=== PATIENT | female | born 1975 | race Caucasian/White ===

== ENCOUNTER 2020-06-11 15:39 | Outpatient (REF) | payer OTHER, SELFPAY ==
[2020-06-11 21:35] LABS: Anion Gap 9.1 mmol/L (3-11); BUN 9 mg/dL (7-18); CO2 29.9 mmol/L (21.0-32.0); CREATININE 0.77 mg/dL (0.55-1.02); Calcium 9.2 mg/dL (8.5-10.1); Calculated LDL 156 mg/dL (<100); Chloride 106 mmol/L (98-107); Cholesterol 246 mg/dL (<200); Glucose 88 mg/dL (74-106); HDL Cholesterol 67 mg/dL (40-60); Potassium 3.8 mmol/L (3.5-5.1); Sodium 145 mmol/L (136-145); TSH (W/Ref FT4) 3.37 uIU/mL (0.36-3.74); Triglyceride 116 mg/dL (<150)
== END 2020-06-11 15:59 ==
LOC: NCHCN 15:39
PROVIDERS: PCP Family Medicine; Visit Provider Family Medicine
DX: E03.9 Hypothyroidism, unspecified (principal); E78.5 Hyperlipidemia, unspecified; E66.3 Overweight
CPT/HCPCS: 80048; 80061; 84443

== ENCOUNTER 2020-08-23 12:21 | Outpatient (REF) | payer SELFPAY ==
[2020-08-26 13:04] LABS: SARS-CoV-2 RNA Not Detected (NotDetected); SARS-CoV-2 RNA Source Nasal/Nares
== END 2020-08-23 12:41 ==
LOC: NCHCN 12:21
PROVIDERS: PCP Family Medicine; Visit Provider Nurse Practitioner Family
DX: Z20.828 Contact with and (suspected) exposure to other viral communicable diseases (principal)
CPT/HCPCS: U0003

== ENCOUNTER 2020-12-05 19:45 | Outpatient (REF) | payer OTHER, SELFPAY | END 2020-12-05 19:46 | disposition home or self-care (01) | LOC: NCHCO 19:45 | PROVIDERS: PCP Family Medicine; Visit Provider Registered Nurse | DX: N39.0 Urinary tract infection, site not specified (principal) | CPT/HCPCS: 87086 ==

== ENCOUNTER 2021-07-21 16:33 | Outpatient (REF) | payer OTHER, SELFPAY ==
[2021-07-22 20:02] LABS: COVID-19 RT-PCR UVMMC Result Negative (Negative)
== END 2021-07-21 16:34 | disposition home or self-care (01) ==
LOC: NCHCN 16:33
PROVIDERS: PCP Family Medicine; Visit Provider Nurse Practitioner Family
DX: Z20.822 Contact with and (suspected) exposure to COVID-19 (principal)
CPT/HCPCS: U0003

== ENCOUNTER 2021-12-17 16:34 | Outpatient (REF) | payer OTHER, SELFPAY ==
[2021-12-17 14:29] LABS: Calculated LDL 149 mg/dL (<100); Cholesterol 241 mg/dL (<200); HDL Cholesterol 57 mg/dL (40-60); Triglyceride 175 mg/dL (<150)
== END 2021-12-17 16:35 | disposition home or self-care (01) ==
LOC: NCHCN 16:34
PROVIDERS: PCP Family Medicine; Visit Provider Family Medicine
DX: Z00.00 Encounter for general adult medical examination without abnormal findings (principal); Z13.1 Encounter for screening for diabetes mellitus; Z13.220 Encounter for screening for lipoid disorders
CPT/HCPCS: 80061; 83036

== ENCOUNTER 2022-04-30 12:03 | Outpatient (REF) | payer OTHER, SELFPAY ==
[2022-04-30 21:29] LABS: TSH (W/Ref FT4) 6.79 uIU/mL (0.36-3.74)
== END 2022-04-30 12:04 | disposition home or self-care (01) ==
LOC: NCHCN 12:03
PROVIDERS: PCP Family Medicine; Visit Provider Nurse Practitioner Family
DX: E03.9 Hypothyroidism, unspecified (principal); E66.9 Obesity, unspecified
CPT/HCPCS: 84439; 84443

== ENCOUNTER → 2022-06-05 00:05 | Outpatient (CLI) | payer OTHER, SELFPAY ==
--- NOTE | 2022-06-05 | DI.MAMMO_ITS ---
Exam(s) MAMMO SCREENING EXAM: MAMMO SCREENING CLINICAL HISTORY: SCREENING, Z12.39 TECHNIQUE: Bilateral full field digital CC and MLO mammographic images were obtained with 3D tomosyn thesis and utilizing computer aided detection (CAD). COMPARISON: None. FINDINGS: Masses/Architectural Distortion: None seen. Microcalcifications: No suspicious pleomorphic-type are seen. Skin Thickening/Nipple Retraction: None. IMPRESSION: 1. No significant interval change with no specific features of malignancy noted. 2. Unless there is more urgent need, screening mammography is recommended, as per [employer] guidelines. BI-RADS Category 1 - Negative Breast Density - Category C - Heterogeneously dense Breast density category C or D implies that the patient has dense breast tissue. Dense breast tissue is very common and is not abnormal but dense breast tissue can make it harder to find cancer on a ma mmogram. Also, dense breast tissue may increase their breast cancer risk. This information about the result of the mammogram report was provided to the patient to raise their awareness. Use this report when you speak with the patient about their risks for breast cancer, which includes their family hist ory. At that time, you may recommend for more screening tests (Ultrasound or MRI) as they might be us eful based on their risk. A negative radiographic report should not delay biopsy if a dominant or clinically suspicious mass is present. Up to ten percent of cancers are not identified on mammography. A negative report may reinforce clinical impression. Adenosis and dense breasts may obscure an underlying neoplasm. False positive reports average 6 to 10%. Patient will receive a letter notifying them of these results.
== END ==
PROVIDERS: PCP Family Medicine; Visit Provider Family Medicine
DX: Z12.31 Encounter for screening mammogram for malignant neoplasm of breast (principal); R92.8 Other abnormal and inconclusive findings on diagnostic imaging of breast
CPT/HCPCS: 77063; 77067

== ENCOUNTER 2022-06-08 18:33 | Outpatient (REF) | payer OTHER, SELFPAY ==
[2022-06-08 17:59] LABS: TSH 0.46 uIU/mL (0.36-3.74)
== END 2022-06-08 18:34 | disposition home or self-care (01) ==
LOC: NCHCN 18:33
PROVIDERS: PCP Family Medicine; Visit Provider Family Medicine
DX: E03.9 Hypothyroidism, unspecified (principal)
CPT/HCPCS: 84443

== ENCOUNTER 2023-04-29 17:34 | Outpatient (REF) | payer SELFPAY ==
[2023-04-29 14:32] LABS: Abs Immature Grans 0.02 10^3/uL (0.0-0.06); Absolute Basophil Count 0.04 10^3/uL (0.0-0.2); Absolute Eosinophil Count 0.06 10^3/uL (0.0-0.7); Absolute Lymphocyte Count 1.61 10^3/uL (1.2-3.4); Absolute Monocyte Count 0.49 10^3/uL (0.1-0.8); Absolute Neutrophil Count 5.14 10^3/uL (1.2-6.7); Anion Gap 8.4 mmol/L (3-11); BUN 9 mg/dL (7-18); Basophils % 0.5; CO2 27.6 mmol/L (21.0-32.0); CREATININE 0.8 mg/dL (0.55-1.02); Chloride 104 mmol/L (98-107); Eosinophils % 0.8; Estimated GFR 91.97 (mL/min/1.73m2); Glucose 81 mg/dL (74-106); HCT 44.3 % (36.0-46.0); HGB 15.3 g/dL (11.2-15.7); Immature Grans % 0.3; Lymphocytes % 21.9; MCH 31.9 pg (27.0-33.0); MCHC 34.5 % (32.0-36.0); MCV 93 fL (80-95); MPV 10.8 fL (8.0-11.0); Monocytes % 6.7; Neutrophils % 69.8; Platelet Count 220 10^3/uL (130-400); Potassium 3.9 mmol/L (3.5-5.1); RBC 4.79 10^6/uL (3.93-5.22); RDW 11.9 % (11.7-14.6); RDW-SD 40.7 fL; Sodium 140 mmol/L (136-145); WBC 7.36 10^3/uL (4.4-10.8)
== END 2023-04-29 17:35 | disposition home or self-care (01) ==
LOC: NCHCN 17:34
PROVIDERS: PCP Family Medicine; Visit Provider Registered Nurse
DX: R10.30 Lower abdominal pain, unspecified (principal)
CPT/HCPCS: 80048; 85025

== ENCOUNTER 2023-10-20 13:03 | Outpatient (REF) | payer BC, SELFPAY ==
[2023-10-20 14:24] LABS: HCT 46.5 % (36.0-46.0); HGB 15.8 g/dL (11.2-15.7); MCH 31.2 pg (27.0-33.0); MCV 92 fL (80-95); MPV 9.2 fL (8.0-11.0); Platelet Count 250 10^3/uL (130-400); RBC 5.06 10^6/uL (3.93-5.22); RDW 11.9 % (11.7-14.6); RDW-SD 39.9 fL; WBC 5.83 10^3/uL (4.4-10.8)
[2023-10-20 14:50] LABS: TSH (W/Ref FT4) 2.44 uIU/mL (0.36-3.74)
[2023-10-20 15:02] LABS: Vitamin D 25 Total 29.7 ng/mL (30-100)
== END 2023-10-20 13:04 | disposition home or self-care (01) ==
LOC: NCHCN 13:03
PROVIDERS: PCP Family Medicine; Visit Provider Family Medicine
DX: E03.9 Hypothyroidism, unspecified (principal); R53.83 Other fatigue; L65.9 Nonscarring hair loss, unspecified; E55.9 Vitamin D deficiency, unspecified
CPT/HCPCS: 82306; 85027; 84443

== ENCOUNTER → 2024-02-14 03:46 | Outpatient (CLI) | payer BC, SELFPAY ==
--- NOTE | 2024-02-14 | DI.MAMMO_ITS ---
Exam(s) MAMMO SCREENING EXAM: MAMMO SCREENING CLINICAL HISTORY: Z12.39 Screening mammogram TECHNIQUE: Mammograms were interpreted according to the usual protocol including computer analysis w [employer] CAD system, tomosynthesis and C-view imaging. COMPARISON: 2021 FINDINGS: The breasts are composed of heterogeneously dense fibroglandular densities, Breast Density category C . No suspicious masses or suspicious microcalcifications are seen. No skin thickening or abnormal axillary lymph nodes are seen. There has been no significant change from prior exams. IMPRESSION: BI-RADS Category 1, Negative mammogram. Yearly screening mammography is recommended. Breast Density Category C, heterogeneously Dense. The mammogram demonstrates the patient's breast tissue is dense. Dense breast tissue is very common a nd is not abnormal but dense breast tissue can make it harder to find cancer on a mammogram. Also, de nse breast tissue may increase breast cancer risk. This information about the result of the mammogram report was provided to the patient to raise their awareness. Use this report when you speak with the patient about their risks for breast cancer, which includes their family history. At that time, you may recommend additional screening tests (Ultrasound or MRI) as they might be useful based on their r isk. A negative radiographic report should not delay biopsy if a dominant or clinically suspicious mass is present. Up to ten percent of cancers are not identified on mammography. A negative report may reinforce clinical impression. Adenosis and dense breasts may obscure an underlying neoplasm. False positive reports average 6 to 10%.
== END ==
PROVIDERS: PCP Family Medicine; Visit Provider Family Medicine
DX: Z12.31 Encounter for screening mammogram for malignant neoplasm of breast (principal)
CPT/HCPCS: 77063; 77067

== ENCOUNTER 2024-08-15 07:52 | Outpatient (REF) | payer BC, SELFPAY | END 2024-08-15 07:53 | disposition home or self-care (01) | LOC: NCHCN 07:52 | PROVIDERS: PCP Family Medicine; Visit Provider Nurse Practitioner Family | DX: R30.0 Dysuria (principal); R82.89 Other abnormal findings on cytological and histological examination of urine | CPT/HCPCS: 87077; 87086; 87186 ==

== ENCOUNTER 2025-03-15 12:10 | Emergency (ER) | payer OTHER, SELFPAY ==
[2025-03-15 12:18] VITALS: BP 113/80; PULSE 84; RESP 16; TEMP 36.7; O2SAT 98
--- NOTE | 2025-03-15 12:47 | ED.GENADUL_ITS ---
Discharge Plan Disposition Patient Disposition: Home Condition: Stable Discharge Details Clinical Impression: Gastroenteritis Primary Care Provider: Kizzy Correa ED Provider: Reji Robles Home Meds and New Rx's Prescriptions: New ketorolac 10 mg tablet 10 mg PO QID PRNQty: 20 0RF Rx Instructions: maximum total duration of 5 days from all oral, intranasal, or parenteral formulations ondansetron 4 mg tablet,disintegrating 4 mg PO Q8H PRNQty: 30 0RF No Action bupropion HCl 150 mg tablet extended release 24 hr 150 mg PO DAILY omeprazole 20 mg capsule,delayed release(DR/EC) 20 mg PO DAILY spironolactone 100 mg tablet 100 mg PO DAILY Discharge Instructions Instructions: Viral gastroenteritis in adults, Ketorolac (Systemic), Ondansetron, Ovarian Cyst ED Additional Instructions: You were seen in the emergency department for your abdominal pain of unknown cause, incidental findings on your CT showed you have a 1.2 cm left ovarian cyst, this could be the source of your pain, and mildly elevated white blood cell count and some nausea and vomiting and loose stool, this could be a stomach bug as well. I have sent your prescription for 5 days of ketorolac, the medicine you received in your IV today. I have also sent a prescription for Zofran and the antinausea dissolvable tablets to go under your tongue. Please take these consistently and added 1000 mg of Tylenol 3-4 times per day, stay well-hydrated and well-nourished with a good diet, please return for any increasing abdominal pain especially with fever, increased red stools, intractable nausea or vomiting or any other emergent concerns. Referrals: Kizzy Correa [Primary Care Provider] - Discharge Data Discharge Date/Time-TO BE ENTERED AT DEPARTURE: 03/15/25 15:55 HPI General Date/Time Provider Initiated Documentation: 03/15/25 12:24 . HPI Narrative: 50 year-old female presents to ED today by POV/ambulating with a chief complaint of lower abdominal pain with onset this morning, woke her up from sleep. Quality described as cramping intermittently, some nausea and diarrhea, questions some reddish color in her stool, no radiation to fever, chest pain, shortness of breath, intractable vomiting, black/tarry stools. Severity is described as moderate. Palliating factors include nothing specific attempted. Provoking factors include nothing specific. Patient not anticoagulated. Related Data Home Medications ?Medication ?Instructions ?Recorded ?Confirmed bupropion HCl 150 mg 24 hr tablet, 150 mg PO DAILY 03/15/25 03/15/25 extended release ketorolac 10 mg tablet 10 mg PO QID PRN #20 tabs 03/15/25 omeprazole 20 mg capsule,delayed 20 mg PO DAILY 03/15/25 03/15/25 release ondansetron 4 mg disintegrating 4 mg PO Q8H PRN #30 tabs 03/15/25 tablet spironolactone 100 mg tablet 100 mg PO DAILY 03/15/25 03/15/25 Previous Rx's ?Medication ?Instructions ?Recorded ketorolac 10 mg tablet 10 mg PO QID PRN #20 tabs 03/15/25 ondansetron 4 mg disintegrating 4 mg PO Q8H PRN #30 tabs 03/15/25 tablet Allergies Allergy/AdvReac Type Severity Reaction Status Date / Time ampicillin AdvReac Mild Rash Verified 03/15/25 12:17 diphenhydramine (From AdvReac Mild Agitation Verified 03/15/25 12:17 Benadryl) General Stated Complaint: Abd Prob KRISTEN: 3 Review of Systems All systems reviewed & are unremarkable except as noted in HPI and below Exam Narrative Exam Narrative: GENERAL APPEARANCE: Well-nourished, non-toxic, awake and alert, atraumatic, no acute distress. SKIN: Warm, pink, dry, intact, without rashes/lesions/ulcerations. HEAD: Normocephalic, atraumatic, normal hair distribution for gender/age. EYES: Normal conjunctiva, no exudates on lids/lashes. ENT: Nares patent, no circumoral cyanosis, no facial swelling NECK: Supple, trachea midline, painless cervical ROM. LUNGS/CHEST: Lungs CTA bilaterally, non-labored respirations, normal A/P diameter, symmetrical expansion, no chest wall deformity HEART (CV/PV): Regular rate and rhythm without murmur, no peripheral edema, no JVD. ABDOMEN: Soft, non-distended, no guarding, RLQ & LLQ abdominal tenderness, no overt rebound tenderness, no CVA tenderness to percussion bilaterally. MSK: Normal ROM, no swelling/deformity to bilateral UEs or LEs, moving all extremities without weakness, no cyanosis, spine midline without tenderness, normal curvature. NEURO: Mental Status AAOx4 - alert to person, place, time, events No facial droop, no forehead involvement. Motor: No focal weakness - strength 5/5 in bilateral UEs and LEs, proximal and distal, symmetric. Sensory: sensation intact to light touch globally. Gait normal: patient ambulated without ataxia into ED room. PSYCH: euthymic, cooperative, pleasant, appropriate speech Course Vital Signs Vital signs: Vital Signs Temperature 36.7 C 03/15/25 12:18 Pulse 84 03/15/25 12:18 Respiratory Rate 16 03/15/25 12:18 Blood Pressure 113/80 03/15/25 12:18 Pulse Oximetry 98 03/15/25 12:18 Temperature 36.7 C 03/15/25 12:18 Temperature Source Oral 03/15/25 12:18 Pulse 84 03/15/25 12:18 Respiratory Rate 16 03/15/25 12:18 Blood Pressure 113/80 03/15/25 12:18 Blood Pressure Position Sitting 03/15/25 12:18 Pulse Oximetry 98 03/15/25 12:18 Oxygen Delivery Method Room Air 03/15/25 12:18 Oxygen Flow Rate 0 03/15/25 12:18 Pain Level 5 03/15/25 12:18 Medical Decision Making This dictation utilizes [id number] dictation software and may contain unedited grammatical errors. 50 year-old female presents to ED today by POV/ambulating with a chief complaint of lower abdominal pain with onset this morning, woke her up from sleep. Quality described as cramping intermittently, some nausea and diarrhea, questions some reddish color in her stool, no radiation to fever, chest pain, shortness of seb ath, intractable vomiting, black/tarry stools. Severity is described as moderate to severe. Palliating factors include nothing specific attempted. Provoking factors include nothing specific. Patients' medical history: Hypothyroidism, ovarian cyst, palpitations, migraine. Family and social history: Reports no toxic food ingestion, denies EtOH use. Pertinent exam findings / vital signs include diffuse lower abdominal tenderness left lower and right lower quadrants, no overt rebound tenderness, negative Goodrich sign, no CVA tenderness to percussion bilaterally, benign cardiopulmonary status, neuro intact, nontoxic and afebrile. Differential / pathologies of concern include gastroenteritis, lower GI bleeding, colitis, UTI, ovarian cyst. Diagnostic studies of: - CBC, CMP, lactate, magnesium, lipase, UA, CT ABD/pelvis with contrast. -CBC shows a mild leukocytosis of 10.9, nonspecific, hemoglobin 15.9 likely hemoconcentration do not suspect acute bleeding or hemorrhage with the patient's red-tinged stool - Lactate negative - CMP is unremarkable - Magnesium within normal limits - Lipase negative - UA completely benign - CT shows incidental finding of cholelithiasis, patient has no pain in this area, there is a left ovarian cyst of 1.2 cm likely the source of the patient's pain vs viral gastroenteritis Interventions of: -50 mg IVP ketorolac, 4 mg Zofran, 1 g Tylenol. ED Course/Assessment/Plan: Patient with intermittent lower abdominal pain with some nausea and possible diarrhea, her CT scan shows no acute pathology save for a left ovarian cyst of 1.2 cm not concern for torsion. I counseled her on benign laboratory workup and negative CAT scan with likely cause of her problems as gastroenteritis, her pain had improved significantly with Tylenol and Toradol and Zofran and plan to send her home on these medicines, encourage good p.o. intake of food and hydration, strict return criteria for any severe acute worsening despite treatment especially with fever, chest pain, shortness of breath, black or bloody stools. Findings not consistent with diverticulitis, appendicitis, small bowel obstruction, torsion, large ovarian cyst, perforated viscus, sepsis, electrolyte derangement, GI bleeding or hemorrhage. Disposition of abdominal pain of unknown cause. Patient verbalized understanding of the plan and return to ED criteria and engaged in shared decision making. Medical Records Medical records reviewed: Yes I reviewed the patient's medical records. Imaging Data Radiologic Study: Attestation: I personally reviewed and interpreted this imaging study as follows: Imaging: CT Scan Radiologist's impression: EXAM: CT ABDOMEN PELVIS W CLINICAL HISTORY: severe lower ABD pain. TECHNIQUE: Imaging Protocol: Axial computed tomography images with coronal and sagittal reformatted images were created and reviewed CONTRAST MATERIAL: Intravenous: Omnipaque-350 75cc Oral: None COMPARISON: No exams were available for comparison FINDINGS: VISUALIZED LUNG BASES: No nodules nor pleural effusions evident. ABDOMEN: There is no ascites. LIVER: There is a small benign-appearing cyst in the anterior aspect of the left hepatic lobe which measures 6 x 4 mm. An even smaller 2 millimeter benign cyst is noted peripherally in the right lobe of the liver. No dilated intrahepatic ducts. GALLBLADDER/BILIARY: There is a 5 millimeter gallstone on the dependent wall of the gallbladder fundus. Other possibility is that it is an enhancing polyp at this level. The gallbladder wall is not edematous nor thickened and there is no pericholecystic fluid. The CBD is not dilated. PANCREAS: No evidence of pancreatic mass nor dilatation of the pancreatic duct. SPLEEN: Spleen is not enlarged. No obvious intrasplenic lesions. Splenic and portal veins are patent. ADRENALS: There are no significant adrenal masses. KIDNEYS:No cysts evident. No solid renal masses. No calculi nor hydronephrosis.. ABDOMINAL AORTA: Abdominal aorta is not enlarged. LYMPH NODES:There is no retroperitoneal nor paraaortic adenopathy. ABDOMINAL WALL: No evidence of significant anterior abdominal wall nor inguinal hernia. GI: There is no evidence of bowel obstruction, free air, nor abscess. Most of the colon is collapsed. However, there does not appear to be a small bowel obstruction pattern. PELVIS: GI: No evidence of appendicitis.No evidence of sigmoid diverticulitis. LYMPH NODES: There is no intrapelvic nor inguinal adenopathy. REPRODUCTIVE: There is an IUD in satisfactory position within the endometrial canal of the uterus. Uterus size is normal. No abnormal adnexal masses although there does appear to be cyst in the left ovary measuring 1.2 cm. Also slight prominence in diameter of the left fallopian tube. There is also a small finding in the left ovary which is probably a corpus luteal cyst. No abnormal right adnexal findings and there is no free fluid in the pelvis. No free fluid. URINARY BLADDER: No calculi nor obvious masses evident. Pelvic ureters are not dilated. OSSEOUS: No fractures and no significant osseous lesions. IMPRESSION: 1. Cholelithiasis. There is a small 5-6 mm calculus in the gallbladder fundus. The other possibility is that this may represent an enhancing polyp in the gallbladder dislocation. No evidence of acute cholecystitis nor significant dilatation of the biliary tree. 2. There is an IUD in satisfactory position in the endometrial canal. Uterus is anteverted and exhibits normal size. 3. There is some prominence of the left fallopian tube and what appears to be left ovary and a smaller corpus luteal cyst in the left ovary. There is no free fluid in the pelvis nor elsewhere in the abdomen. Lab Data Lab results reviewed: Yes I reviewed the patient's lab results. Labs: Laboratory Tests Range/Units 03/15/25 03/15/25 12:55 13:55 WBC (4.4-10.8) 10^3/uL 10.95 H RBC (3.93-5.22) 10^6/uL 5.14 Hgb (11.2-15.7) g/dL 15.9 H Hct (36.0-46.0) % 46.5 H MCV (80-95) fL 91 MCH (27.0-33.0) pg 30.9 MCHC (32.0-36.0) % 34.2 RDW (11.7-14.6) % 11.6 L Plt Count (130-400) 10^3/uL 252 MPV (8.0-11.0) fL 9.3 Immature Gran % % 0.4 Neutrophils % % 86.7 Lymphocytes % % 7.9 Monocytes % % 4.6 Eosinophils % % 0.2 Basophils % % 0.2 Nucleated RBC % (0.0-0.3) % 0.0 Absolute Neutrophils (1.2-6.7) 10^3/uL 9.49 H Absolute Lymphocytes (1.2-3.4) 10^3/uL 0.87 L Absolute Monocytes (0.1-0.8) 10^3/uL 0.50 Absolute Eosinophils (0.0-0.7) 10^3/uL 0.02 Absolute Basophils (0.0-0.2) 10^3/uL 0.02 VBG Lactate (<or=2.0) mmol/L 0.9 Sodium (136-145) mmol/L 141 Potassium (3.5-5.1) mmol/L 4.1 Chloride (98-107) mmol/L 102 Carbon Dioxide (21.0-32.0) mmol/L 29.4 Anion Gap (3-11) mmol/L 9.6 BUN (7-18) mg/dL 9 Creatinine (0.55-1.02) mg/dL 0.7 Est GFR (CKD-EPI 2020) (mL/min/1.73m2) 106.62 Glucose (74-106) mg/dL 106 Calcium (8.5-10.1) mg/dL 9.7 Magnesium (1.8-2.4) mg/dL 2.1 Total Bilirubin (0.2-1.0) mg/dL 0.5 AST (15-37) U/L 22 ALT (14-59) U/L 45 Alkaline Phosphatase (46-116) U/L 88 Total Protein (6.4-8.2) g/dL 8.0 Albumin (3.4-5.0) g/dL 4.2 Lipase (<78) U/L 37 Urine Color (Yellow) Yellow Urine Clarity (Clear) Clear Urine pH (5-8) 8.5 H Ur Specific [place] (1.005-1.025) 1.015 Urine Protein (Neg-Trace) mg/dL Negative Urine Ketones (Negative) mg/dL Negative Urine Blood (Negative) Negative Urine Nitrite (Negative) Negative Urine Bilirubin (Negative) Negative Urine Urobilinogen (Up to 0.2) mg/dL 0.2 Ur Leukocyte Esterase (Negative) Negative Urine Glucose (Negative) mg/dL Negative Quality:SDOH Health Related Social Needs: No Data to Display PFSH All Active Problems (Updated 03/15/25 @ 15:31 by KETURAH Bashir) Gastroenteritis (Acute) Social History Smoking/Tobacco Use Status: Never Smoking risk assessment performed?: Yes Alcohol Intake: never Substance use type: does not use
[2025-03-15 13:03] LABS: Lactate 0.9 mmol/L (<or=2.0)
[2025-03-15 13:04] LABS: Abs Immature Grans 0.04 10^3/uL (0.0-0.06); Absolute Basophil Count 0.02 10^3/uL (0.0-0.2); Absolute Eosinophil Count 0.02 10^3/uL (0.0-0.7); Basophils % 0.2 %; Eosinophils % 0.2 %; HCT 46.5 % (36.0-46.0); HGB 15.9 g/dL (11.2-15.7); Immature Grans % 0.4 %; Lymphocytes % 7.9 %; MCH 30.9 pg (27.0-33.0); MCHC 34.2 % (32.0-36.0); MCV 91 fL (80-95); MPV 9.3 fL (8.0-11.0); Monocytes % 4.6 %; Neutrophils % 86.7 %; Platelet Count 252 10^3/uL (130-400); RBC 5.14 10^6/uL (3.93-5.22); RDW 11.6 % (11.7-14.6); RDW-SD 38.5 fL; WBC 10.95 10^3/uL (4.4-10.8)
[2025-03-15] MEDS: Ketorolac 15 MG/ML VIAL IVP (13:04)
[2025-03-15] MEDS: Ondansetron 4 MG/2 ML VIAL IVP (13:04)
[2025-03-15 13:06] LABS: Absolute Lymphocyte Count 0.87 10^3/uL (1.2-3.4); Absolute Neutrophil Count 9.49 10^3/uL (1.2-6.7)
[2025-03-15 13:09] VITALS: BP 113/80; PULSE 84; RESP 16; TEMP 36.7; O2SAT 98
[2025-03-15] MEDS: ACETAMINOPHEN 1,000 MG/100 ML BAG 1000 MG (13:09)
[2025-03-15 13:23] LABS: ALT 45 U/L (14-59); AST 22 U/L (15-37); Albumin 4.2 g/dL (3.4-5.0); Alkaline Phosphatase 88 U/L (46-116); Anion Gap 9.6 mmol/L (3-11); BUN 9 mg/dL (7-18); Bilirubin, Total 0.5 mg/dL (0.2-1.0); CO2 29.4 mmol/L (21.0-32.0); CREATININE 0.7 mg/dL (0.55-1.02); Calcium 9.7 mg/dL (8.5-10.1); Chloride 102 mmol/L (98-107); Estimated GFR 106.62 (mL/min/1.73m2); Glucose 106 mg/dL (74-106); Lipase 37 U/L (<78); Magnesium 2.1 mg/dL (1.8-2.4); Potassium 4.1 mmol/L (3.5-5.1); Sodium 141 mmol/L (136-145)
[2025-03-15 14:14] LABS: Bilirubin Negative (Negative); Blood Negative (Negative); Clarity Clear (Clear); Glucose Negative (Negative); Ketones Negative (Negative); Leukocyte Esterase Negative (Negative); Nitrite Negative (Negative); Specific Gravity 1.015 (1.005-1.025); Urobilinogen 0.2 mg/dL (Up to 0.2); pH 8.5 (5-8)
[2025-03-15] MEDS: Omnipaque 350 MG/ML 100 ML BTL IJ (14:14)
[2025-03-15] MEDS: Normal Saline - Diluent 50 ML VIAL IJ (14:15)
--- NOTE | 2025-03-15 14:20 | DI.CT_ITS ---
Exam(s) CT ABDOMEN PELVIS W EXAM: CT ABDOMEN PELVIS W CLINICAL HISTORY: severe lower ABD pain. TECHNIQUE: Imaging Protocol: Axial computed tomography images with coronal and sagittal reformatted images were created and reviewed CONTRAST MATERIAL: Intravenous: Omnipaque-350 75cc Oral: None COMPARISON: No exams were available for comparison FINDINGS: VISUALIZED LUNG BASES: No nodules nor pleural effusions evident. ABDOMEN: There is no ascites. LIVER: There is a small benign-appearing cyst in the anterior aspect of the left hepatic lobe which m easures 6 x 4 mm. An even smaller 2 millimeter benign cyst is noted peripherally in the right lobe o f the liver. No dilated intrahepatic ducts. GALLBLADDER/BILIARY: There is a 5 millimeter gallstone on the dependent wall of the gallbladder fundu s. Other possibility is that it is an enhancing polyp at this level. The gallbladder wall is not ed ematous nor thickened and there is no pericholecystic fluid. The CBD is not dilated. PANCREAS: No evidence of pancreatic mass nor dilatation of the pancreatic duct. SPLEEN: Spleen is not enlarged. No obvious intrasplenic lesions. Splenic and portal veins are paten t. ADRENALS: There are no significant adrenal masses. KIDNEYS:No cysts evident. No solid renal masses. No calculi nor hydronephrosis.. ABDOMINAL AORTA: Abdominal aorta is not enlarged. LYMPH NODES:There is no retroperitoneal nor paraaortic adenopathy. ABDOMINAL WALL: No evidence of significant anterior abdominal wall nor inguinal hernia. GI: There is no evidence of bowel obstruction, free air, nor abscess. Most of the colon is collapsed. However, there does not appear to be a small bowel obstruction patte rn. PELVIS: GI: No evidence of appendicitis.No evidence of sigmoid diverticulitis. LYMPH NODES: There is no intrapelvic nor inguinal adenopathy. REPRODUCTIVE: There is an IUD in satisfactory position within the endometrial canal of the uterus. U terus size is normal. No abnormal adnexal masses although there does appear to be cyst in the left o vary measuring 1.2 cm. Also slight prominence in diameter of the left fallopian tube. There is also a small finding in the left ovary which is probably a corpus luteal cyst. No abnormal right adnexal findings and there is no free fluid in the pelvis. No free fluid. URINARY BLADDER: No calculi nor obvious masses evident. Pelvic ureters are not dilated. OSSEOUS: No fractures and no significant osseous lesions. IMPRESSION: 1. Cholelithiasis. There is a small 5-6 mm calculus in the gallbladder fundus. The other possibilit y is that this may represent an enhancing polyp in the gallbladder dislocation. No evidence of acute cholecystitis nor significant dilatation of the biliary tree. 2. There is an IUD in satisfactory position in the endometrial canal. Uterus is anteverted and exhib its normal size. 3. There is some prominence of the left fallopian tube and what appears to be left ovary and a smalle r corpus luteal cyst in the left ovary. There is no free fluid in the pelvis nor elsewhere in the ab domen. Report called by myself to ER 03/15/2025 at 2:45 p.m. RADIATION DOSE DELIVERED: 373.18mGy.cm Total DLP DATA REPOSITORY: All CT scans at this facility are submitted to the National Radiology Data Registry (NRDR) Dose Index Registry (DIR) with the [employer] (A[employer]). RADIATION OPTIMIZATION: All CT scans at this facility use at least one of these dose optimization te chniques: automated exposure control; mA and/or kV adjustment per patient size (includes targeted exa ms where dose is matched to clinical indication); or iterative reconstruction.
[2025-03-15 14:35] VITALS: BP 104/54; PULSE 76; RESP 16; O2SAT 100
== END 2025-03-15 15:55 | disposition home or self-care (01) ==
PROVIDERS: Emergency Provider Physician Assistant; PCP Family Medicine
DX: K52.9 Noninfective gastroenteritis and colitis, unspecified (principal); N83.202 Unspecified ovarian cyst, left side
CPT/HCPCS: 99284; 99285; 81025; 96374; 96375; 96372; 80053; 83690; 74177; 81003; 83605; 83735; 85025; J0131; J1885; J2405; J3490

== ENCOUNTER 2025-04-03 14:05 | Outpatient (REF) | payer OTHER, SELFPAY ==
[2025-04-03 17:19] LABS: TSH (W/Ref FT4) 12.66 uIU/mL (0.36-3.74)
[2025-04-03 17:52] LABS: FREE T4 0.93 ng/dL (0.76-1.46)
== END 2025-04-03 14:06 | disposition home or self-care (01) ==
LOC: NCHCN 14:05
PROVIDERS: PCP Family Medicine; Visit Provider Family Medicine
DX: E03.9 Hypothyroidism, unspecified (principal)
CPT/HCPCS: 84439; 84443

== ENCOUNTER 2025-05-28 09:42 | Day surgery (SDC) | payer OTHER, SELFPAY ==
--- NOTE | 2025-05-27 19:07 | W.PM.DSUDISC ---
Date of service: 05/28/25 Discharge Plan Disposition Patient Disposition: Home Condition: Good Discharge Details Reason For Visit: screening colonoscopy Attending Provider: Raymon Johnson Primary Care Provider: Kizzy Correa Home Meds and New Rx's Prescriptions: Continued levothyroxine 75 mcg capsule 75 mcg PO DAILY bupropion HCl 150 mg tablet extended release 24 hr 300 mg PO DAILY Mirena 21 mcg/24hr (up to 8 yrs) 52 mg intrauterine device 1 device intrauterine ONCE Rx Instructions: as a single dose spironolactone 100 mg tablet 100 mg PO DAILY omeprazole 20 mg capsule,delayed release(DR/EC) 20 mg PO DAILY ketorolac 10 mg tablet 10 mg PO QID PRNQty: 20 0RF Rx Instructions: maximum total duration of 5 days from all oral, intranasal, or parenteral formulations ondansetron 4 mg tablet,disintegrating 4 mg PO Q8H PRNQty: 30 0RF Discontinued bisacodyl [Dulcolax (bisacodyl)] 5 mg tablet,delayed release (DR/EC) 5 mg PO ONCE Qty: 4 0RF Rx Instructions: take per colonoscopy instructions polyethylene glycol 3350 17 gram/dose powder 238 g PO ONCE Qty: 238 0RF Rx Instructions: take per colonoscopy instructions Discharge Instructions Instructions: Colon polyps, Diverticulosis Additional Instructions: Allie, It was good seeing you today, and I hope you feel well after the procedure. Things went smoothly. Your prep was excellent, we could see everything fine. I did find, and remove, 8 polyps today. Generally, these are small, most of them appeared consistent with hyperplastic, or nonadenomatous, polyps. To be safe, however, I did remove all of these today. I will send them off to the pathologist for the review. Polyps come in different varieties, and we use that information to help guide the timing of future colonoscopies. And as we suspected from your family history, and our conversation in the office, there are also some changes consistent with diverticulosis. I have attached some basic information here about typical approaches to diverticulosis, as well as colorectal polyps. Await the pathology results before making any other recommendations, but as soon as my office has that information, we will be in touch. If you need anything or have any questions at all, please do not hesitate to ask at any time. 1. If tolerated, consume a soft, low fiber diet for 1-2 days. 2[address] Do not drive, drink alcohol, operate machinery, make critical decisions, or do activities that require coordination or balance for 24 hours. 3. Because air was put into your colon during the procedure, expelling air from your rectum (passing gas or farting) is normal. 4. You may not have a bowel movement for 1-3 days because of the colonoscopy prep. This is normal. 5. Go directly to the emergency room if you notice any of the following: Develop chills (warm to touch), or if you have a thermometer and your temperature is above 101 Difficulty breathing or difficultly swallowing Persistent vomiting Severe abdominal pain, other than gas cramps Severe chest pain Black, tarry stools Any bleeding ? exceeding one tablespoon 6. Call your physician if the site where your intravenous was started becomes red, swollen, painful, and warm to touch. 7. Your physician has reviewed your pre-procedure medications. Please continue to take those medications as previously ordered. You will be given specific information/education regarding any changes to your medications before leaving. Activity:: Activity as Tolerated Diet:: As Tolerated DS: Diagnosis Discharge Diagnosis (1) Encounter for screening colonoscopy: Status: Acute
--- NOTE | 2025-05-27 19:08 | W.COLOREPORT ---
Date of service: 05/28/25 Time of Service: 12:42 Colonoscopy Report Date of procedure: 05/28/25 Pre-op diagnosis general: screening colonoscopy Post-op diagnosis procedure note: other (Colon polyps, diverticulosis) Procedure: colonoscopy with polypectomy Surgeon: Raymon Johnson Anesthesia Type: General:No Airway Estimated blood loss (mL): 10 Pathology: other (Rectal polyps x 3 (single specimen), 0.25 cm flat polyps at 18 cm x 2 (single specimen), 0.25 cm flat polyps at 20 x 3 (single specimen)) Complications: None Disposition: same day Indications: Allie is a 50 year old woman who needs a screening colonoscopy Prep: Miralax/Dulcolax Procedure Start Time: 11:58 Procedure End Time: 12:25 Retraction Time: 13 Findings: Sigmoid diverticulosis, Rectal polyps x 3 (single specimen), 0.25 cm flat polyps at 18 cm x 2 (single specimen), 0.25 cm flat polyps at 20 x 3 (single specimen) Procedure Description: After the induction of anesthesia, and with the patient in left lateral decubitus position, I began by performing an external anorectal exam.? Perineum and skin were normal, as was the anal verge.? There was no evidence of external hemorrhoids.? Next, I performed a digital rectal exam.? I did not appreciate any abnormal findings.? Next, I advanced a colonoscope into the rectal vault.? I performed retroflexion.? This appeared normal.? In the upper portion of the rectal vault were 2 polyps. These were both about 0.25 cm and flat. Both was. Consistent with hyperplastic polyps, but given the history, I did perform cold forceps polypectomies. A few millimeters away was another polyp. This was slightly larger, but still around 0.25 cm. This was slightly pedunculated, and retrieved with cold snare polypectomy. These polyps were all sent as a single specimen. Using irrigation, I then advanced the colonoscope beyond the rectal folds and into the sigmoid colon before advancing towards the cecum.? The scope was noted to be in the cecum by identification of the ileocecal valve and appendiceal orifice.? I then began withdrawing the colonoscope using repeated irrigation as necessary for full evaluation of the colonic mucosa. ?There were some changes in the sigmoid colon consistent with diverticulosis. These are generally narrow mouth diverticula, and there was only mild thickening of the sigmoid colonic mucosa. Around 20 cm from the anal verge was a small group of 3 polyps. These was each about 0.25 cm. All of these were flat, and all removed with cold forceps and sent as a single specimen. Similarly, at 18 cm beyond the anal verge were 2 more polyps. These were also flat. These were also removed with cold forceps without any issues. Once the scope was withdrawn to the level of the rectum, great care was taken to examine portions of the rectal folds.? Finally, the scope was withdrawn and the patient was brought to the same-day surgery recovery unit as the anesthetic wore off. ?The findings and instructions were shared with the patient prior to discharge. Girdwood Bowel Prep Girdwood Bowel Prep Right Colon: 3 Left Colon: 3 Transverse Colon: 3 Total Score: 9
--- NOTE | 2025-05-28 06:21 | W.ANESPRE ---
General Info Date of Service Date Performed: 05/28/25 Height: 5 ft Weight: 68.039 kg Body Mass Index (BMI): 29.2 Surgical Procedure: Operation Date: 05/28/25 11:20 Proposed Procedure Side Surgeon dao Johnson MD Meds Allergies and Home Medications Allergies Allergy/AdvReac Type Severity Reaction Status Date / Time ampicillin AdvReac Mild Rash Verified 05/28/25 10:17 diphenhydramine (From AdvReac Mild Agitation Verified 05/28/25 10:17 Benadryl) Home Medication ?Medication ?Instructions ?Recorded ketorolac 10 mg tablet 10 mg PO QID PRN #20 tabs 03/15/25 omeprazole 20 mg capsule,delayed 20 mg PO DAILY 03/15/25 release ondansetron 4 mg disintegrating 4 mg PO Q8H PRN #30 tabs 03/15/25 tablet bupropion HCl 150 mg 24 hr tablet, 300 mg PO DAILY 03/22/25 extended release levonorgestrel (Mirena) 1 device intrauterine ONCE 03/22/25 spironolactone 100 mg tablet 100 mg PO DAILY 03/22/25 levothyroxine 75 mcg capsule 75 mcg PO DAILY 05/10/25 Current Visit Medications: Current Medications Generic Name Dose Route Start Last Admin Trade Name Freq PRN Reason Stop Dose Admin Ringer's Solution 1,000 mls @ 80 mls/hr 05/28/25 06:00 IV 05/28/25 23:59 INFUSION ELIZABETH IV Miscellaneous Supplies 1 each 05/28/25 06:00 Iv Access IV 05/28/25 23:59 DIRECTED ELIZABETH Ondansetron HCl 4 mg 05/27/25 19:10 Ondansetron 4 Mg/2 Ml Vial IVP 06/26/25 19:09 Q4H PRN PRN Nausea / Vomiting Sodium Chloride 0 ml 05/28/25 06:00 Normal Saline Flush 10 Ml Syr IV 05/28/25 23:59 PRN PRN Sodium Chloride 0 ml 05/28/25 06:00 Normal Saline 10 Ml Vial IJ 05/28/25 23:59 DIRECTED PRN Sterile Water 0 ml 05/28/25 06:00 Water,Injection,Sterile 10 Ml Vial IJ 05/28/25 23:59 DIRECTED PRN PFSH Active Problems Active Problems: Problem Status Onset Code Depressed mood Acute R45.89 Left ovarian cyst Acute N83.202 Medical History Medical History Varicose veins of lower extremity Nicotine dependence Chloasma Hypothyroidism Migraine with aura Family history of polycystic kidney Acne Chronic low back pain Perimenopausal disorder Dysuria Fatigue Macromastia Hypertrophy of breast Overweight Surgical History Surgical History Status post breast reduction H/O section x2 History of tubal ligation Tobacco Smoking/Tobacco Use Status: Never Alcohol Alcohol Intake: never Substance Use Substance use type: does not use Vital Signs and Lab Results Vital Signs Most Recent Vital Signs in EMR: Temp Pulse Resp BP Pulse Ox 36.3 C L 83 16 122/67 99 05/28/25 10:22 05/28/25 10:22 05/28/25 10:22 05/28/25 10:22 05/28/25 10:22 Anesthesia Assessment and Plan Anesthesia History Personal History: No History of Anesthesia Complications Family History: No Family History of Anesthesia Complications Exercise Tolerance Exercise Tolerance: Metabolic Equivalents<4 Pertinent Negatives Pertinent Negatives: No Symptoms of GERD (RX Treatment) Cardiac & Pulmonary Exam Cardiac Exam: Normal S1/S2 Heart Sounds Pulmonary Exam: Clear Bilateral Breath Sounds Implantable Cardiac Device Does patient have a Pacemaker or an ICD?: No Airway Exam Known Difficult Airway: No Mallampati Class: 2 Mouth Opening: Normal (> 3cm) Thyromental Distance: Greater than 3 cm Neck Range of Motion: Full ROM Neck Circumference: Normal Teeth Condition: Normal Dentition ASA Classification ASA Score: ASA 2 Emergency Case?: No NPO Status NPO Status: NPO Clears >2 hours, Solids >8 hours Status Status: Negative HCG Anesthesia Plan Resuscitation Status: Full Code Anesthesia Technique: Labor Intrathecal Injection Airway Planned: Natural Airway Monitors Used: Standard Monitors Preoperative Comments:: 50 yo female for colo. Sig PMHx: GERD (omeprazole), hypothyroid (on replacement), migraine, never smoker.
[2025-05-28 10:22] VITALS: BP 122/67; PULSE 83; RESP 16; TEMP 36.3; O2SAT 99
[2025-05-28] MEDS: Lactated Ringers 1,000 ML 80 ML IV (10:45)
[2025-05-28 11:49] VITALS: BMI 29.2
--- NOTE | 2025-05-28 12:00 | BOWEL_PTH ---
PATIENT: Allie Lopes LOC: [facility] U#:[id number] AGE/SX: 50/F ROOM: RE05/28/[address]: Raymon Johnson MD : [id number] BED: DIS: 05/28/2025 SPEC #: [id number] RECD: 05/28/25 13:21 STATUS: NICOLE RE #: [id number] DRE: 05/28/25 12:[address]: Raymon Johnson DEPT: Surgical Specimen RECD BY: Naz Savage Tissues: 1 - BIOPSY BOWEL 2 - BIOPSY BOWEL 3 - BIOPSY BOWEL Procedures: GROSS AND MICRO LEVEL 4 Comments: [id number]
[2025-05-28 12:31] VITALS: BP 121/65; PULSE 88; RESP 14; TEMP 36; O2SAT 99
--- NOTE | 2025-05-28 12:38 | W.ANESPOSTOP ---
Postoperative Evaluation Date, Time and Location Date Performed: 05/28/25 Time Performed: 12:38 Patient Location: Day Surgery Unit Vital Signs Most Recent Imported Vital Signs: Most Recent Vital Signs Temp Pulse Resp BP Pulse Ox 36.0 C L 88 14 121/65 99 05/28/25 12:31 05/28/25 12:31 05/28/25 12:31 05/28/25 12:31 05/28/25 12:31 Pain Score Most Recent Pain Score: Most Recent Pain Score Pain Level 0 05/28/25 12:31 Assessment Mental Status: Awake (Alert & Oriented to Patient Baseline) Airway and Respiratory Function: Patent airway with normal (patient baseline) respiratory exam Cardiovascular Function: Hemodynamically Stable Hydration Status: Adequately Hydrated Nausea & Vomiting: No Nausea or Vomiting Pain: Pt. Denies Any Pain Peripheral Nerve Block: Patient did not receive a nerve block
[2025-05-28] MEDS: Tetracaine 0.5% 4 ML BTL (12:50)
[2025-05-28 12:55] VITALS: BP 127/70; PULSE 67; RESP 16; TEMP 36.6; O2SAT 100
== END 2025-05-28 13:33 | disposition home or self-care (01) ==
PROVIDERS: PCP Family Medicine; Visit Provider Surgery
PROC: 0DJD8ZZ Inspection of Lower Intestinal Tract, Via Natural or Artificial Opening Endoscopic (ICD-10-PCS; CPT 45378; principal; 2025-05-28 11:15)
DX: Z12.11 Encounter for screening for malignant neoplasm of colon (principal); K21.9 Gastro-esophageal reflux disease without esophagitis; K57.30 Diverticulosis of large intestine without perforation or abscess without bleeding; D12.5 Benign neoplasm of sigmoid colon; K62.1 Rectal polyp
CPT/HCPCS: 45385; 45380; 88305; J2704

== ENCOUNTER 2025-06-06 15:55 | Outpatient (REF) | payer OTHER, SELFPAY | END 2025-06-06 15:56 | disposition home or self-care (01) | LOC: NCHCN 15:55 | PROVIDERS: PCP Family Medicine; Visit Provider Family Medicine | DX: R30.0 Dysuria (principal) | CPT/HCPCS: 87077; 87086; 87186 ==

== ENCOUNTER → 2025-10-03 00:13 | Outpatient (CLI) | payer OTHER, SELFPAY ==
--- NOTE | 2025-10-03 15:23 | DI.MAMMO_ITS ---
Exam(s) MAMMO SCREENING EXAM: MAMMO SCREENING CLINICAL HISTORY: Z12.39 Screening. TECHNIQUE: Bilateral full field digital CC and MLO mammographic images were obtained with 3D tomosynthesis and utilizing computer aided detection (CAD). COMPARISON: Prior mammograms were reviewed. There has been interval bilateral reduction surgery since the most recent mammogram of February 2024. FINDINGS: Fibroglandular tissue pattern is again noted be moderately dense. There is bilateral architectural distortion now evident, this related to the interval bilateral reduction surgery. There are no obvious spiculated masses nor malignant appearing microcalcification groups. There is no significant architectural distortion nor skin thickening-retraction. IMPRESSION: No radiographic evidence of malignancy. BI-RADS Category 2 - Benign Findings Breast Density - Category C - The breast are heterogeneously dense, which may obscure small masses. Breast density Category C or D implies that the patient has dense breast tissue. Dense breast tissue can make it harder to find cancer on a mammogram. Dense breast tissue is also associated with an increased risk of breast cancer. This information about the result of the mammogram report was provided to the patient to raise their awareness. Use this report when you speak with the patient about their risks for breast cancer, which includes their family history. At that time, you may recommend additional screening tests (Ultrasound or MRI) as these tests may add significant information. A negative radiographic report should not delay biopsy if a dominant or clinically suspicious mass is present. Up to ten percent of cancers are not identified on mammography. A negative report may reinforce clinical impression. Adenosis and dense breasts may obscure an underlying neoplasm. False positive reports average 6 to 10%. Patient will receive a letter notifying them of these results.
== END ==
LOC: DI 00:13
PROVIDERS: PCP Family Medicine; Visit Provider Family Medicine
DX: Z12.31 Encounter for screening mammogram for malignant neoplasm of breast (principal)
CPT/HCPCS: 77063; 77067